=== PATIENT | female | born 1990 | race Caucasian/White ===

== ENCOUNTER 2016-12-29 05:35 | Emergency (ER) | payer OTHER ==
[~2016-12-29 05:35] MED LIST: ACET50TA PO; COLA100C PO; COLL500C PO; EVEN1000 PO; FISH100049 PO; IBUP60TA PO; MOBI15TA PO; MSM500CA PO; NUPE1OIN2 TOP; PRENTAB13 PO; ZOFR20TA PO
== END 2016-12-29 06:28 | disposition left against medical advice (07) ==
LOC: M ED 05:35
DX: Z53.29 Procedure and treatment not carried out because of patient's decision for other reasons (principal)

== ENCOUNTER 2018-03-14 18:01 | Emergency (ER) | payer OTHER ==
[2018-03-14] MEDS: IBUPROFEN 800 MG TAB PO (19:38)
[2018-03-14 20:17] LABS: INFLUENZA A AMPLIFICATION POSITIVE (NEGATIVE); INFLUENZA B AMPLIFICATION NEGATIVE (NEGATIVE)
[2018-03-14] MEDS: OSELTAMIVIR PHOSPHATE 75 MG CAP (TAMIFLU) PO (20:29)
== END 2018-03-14 20:33 | disposition home or self-care (01) ==
LOC: M ED 18:01
DX: J20.9 Acute bronchitis, unspecified (principal); J09.X2 Influenza due to identified novel influenza A virus with other respiratory manifestations; Z91.040 Latex allergy status; Z88.1 Allergy status to other antibiotic agents; Z88.2 Allergy status to sulfonamides; Z79.890 Hormone replacement therapy; Z79.899 Other long term (current) drug therapy
CPT/HCPCS: 71046